=== PATIENT | male | born 1935 | race Caucasian/White ===

== ENCOUNTER → 2019-04-29 | Outpatient (CLI) | payer OTHER ==
[~2019-04-29] MED LIST: ACET-66 PO; AMLO5TAB9 PO; ATOR40TA69 PO; BETA1TAB20 PO; CITA40TA14 PO; GABA-529 PO; GLIP5TAB11 PO; METF-446 PO; RANI150T7 PO; SIMV80TA91 PO; TAMS-1 PO; VALS40TA11 PO
== END | disposition home or self-care (01) ==
LOC: RAH 13:49
PROVIDERS: ATTEND Internal Medicine Cardiovascular Disease
DX: Z13.6 Encounter for screening for cardiovascular disorders (principal)
CPT/HCPCS: 75571